=== PATIENT | male | born 1985 | race Caucasian/White ===

== ENCOUNTER 2018-10-04 11:01 | Inpatient (IN) | payer OTHER ==
[2018-10-04 12:43] VITALS: BMI 19.2
--- NOTE | 2018-10-04 15:06 | HP ---
CIWA Score Nausea/Vomitin Muscle Tremors: 5 Anxiety: 3 Agitation: 0-Normal Activity Paroxysmal Sweats: 2 Orientation: 0-Oriented Tacttile Disturbances: 1-Very Mild Itch/Numbness Auditory Disturbances: 0-None Visual Disturbances: 0-None Headache: 1-Very Mild CIWA-Ar Total Score: 17 - Admission Criteria OASAS Guidelines: Admission for Medically Managed Detox: Requires at least one of the followin. CIWA greater than 12 2. Seizures within the past 24 hours 3. Delirium tremens within the past 24 hours 4. Hallucinations within the past 24 hours 5. Acute intervention needed for co occurring medical disorder 6. Acute intervention needed for co occurring psychiatric disorder 7. Severe withdrawal that cannot be handled at a lower level of care (continued vomiting, continued diarrhea, abnormal vital signs) requiring intravenous medication and/or fluids 8. Patient presents the following: CIWA greater than 12 Admission Criteria Met: Admission criteria met Admission ROS [facility] Chief Complaint: alcohol withdrawal sx Allergies/Adverse Reactions: Allergies Allergy/AdvReac Type Severity Reaction Status Date / Time No Known Allergies Allergy Verified 10/04/18 12:39 History of Present Illness: Patient is a 33 yo male with hx of alcohol dependence is here seeking inpatient detox d/t withdrawal symptoms c/o of frequent nausea and vomiting today and ongoing tremors. Last detox [facility] four years ago. Reports hx of alcohol withdrawal seizures, with last episode five days ago and remote hx of psychosis while detoxing of alcohol. PMHX: Fatty Liver, Bulging disc. Psych: denies. Denies SI/HI Exam Limitations: No Limitations - Ebola screening Have you traveled outside of the country in the last 21 days: No (N) Have you had contact with anyone from an Ebola affected area: No Do you have a fever: No - Review of Systems Constitutional: Chills, Night Sweats, Changes in sleep, Unintentional Wgt. Loss (40+ lbs), Other (shakes, anorexia) EENT: reports: No Symptoms Reported Respiratory: reports: No Symptoms reported Cardiac: reports: Lightheadedness GI: reports: Nausea, Poor Appetite, Poor Fluid Intake, Vomiting, Abdominal cramping : reports: No Symptoms Reported Musculoskeletal: reports: Back Pain Integumentary: reports: No Symptoms Reported Neuro: reports: Dizziness Endocrine: reports: No Symptoms Reported Hematology: reports: No Symptoms Reported Psychiatric: reports: Orientated x3, Anxious Other Systems: Reviewed and Negative Patient History - Patient Medical History Hx Anemia: No Hx Asthma: No Hx Chronic Obstructive Pulmonary Disease (COPD): No Hx Cancer: No Hx Cardiac Disorders: No Hx Congestive Heart Failure: No Hx Hypertension: No Hx Hypercholesterolemia: No Hx Pacemaker: No HX Cerebrovascular Accident: No Hx Seizures: Yes (ETOH withdrawal last seizure five days ago ) Hx Dementia: No Hx Diabetes: No Hx Gastrointestinal Disorders: No Hx Liver Disease: Yes (Fatty Liver ) Hx Genitourinary Disorders: No Hx Sexually Transmitted Disorders: No Hx Renal Disease (ESRD): No Hx Thyroid Disease: No Hx Human Immunodeficiency Virus (HIV): No Hx Hepatitis C: No Hx Depression: No Hx Suicide Attempt: No Hx Bipolar Disorder: No Hx Schizophrenia: No - Patient Surgical History Past Surgical History: No - PPD History Previous Implant?: No Documented Results: Negative w/o proof PPD to be Administered?: Yes - Smoking Cessation Smoking history: Current every day smoker Have you smoked in the past 12 months: Yes Aproximately how many cigarettes per day: 10 Hx Chewing Tobacco Use: No Initiated information on smoking cessation: Yes 'Breaking Loose' booklet given: 10/04/18 - Substance & Tx. History Hx Alcohol Use: Yes Hx Substance Use: Yes Substance Use Type: Alcohol Hx Substance Use Treatment: Yes (Last detox [facility] four years ago.) - Substances abused Alcohol Substance route: Oral Frequency: Daily Amount used: 1.5LITER OF VODKA Age of first use: 8 Date of last use: 10/04/18 Family Disease History - Family Disease History Family History: Denies Admission Physical Exam [facility] - Vital Signs Vital Signs: Vital Signs - 24 hr 10/04/18 12:32 Temperature 98.6 F Pulse Rate 91 H Respiratory 17 Rate Blood Pressure 136/89 - Physical General Appearance: Yes: Disheveled, Moderate Distress, Thin, Tremorous, Sweating, Anxious HEENTM: Yes: EOMI, Hearing grossly Normal, Normal ENT Inspection, Normocephalic , Normal Voice, HAZEL, Pharynx Normal, Tm's normal Respiratory: Yes: Chest Non-Tender, Lungs Clear, Normal Breath Sounds Neck: Yes: Within Normal Limits Breast: Yes: Breast Exam Deferred Cardiology: Yes: Regular Rhythm, Regular Rate Abdominal: Yes: Normal Bowel Sounds, Non Tender, Flat, Soft Genitourinary: Yes: Within Normal Limits Back: Yes: Normal Inspection Musculoskeletal: Yes: full range of Motion, Gait Steady, Pelvis Stable Extremities: Yes: Normal Capillary Refill, Normal Inspection, Normal Range of Motion, Non-Tender Neurological: Yes: 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 NML intact, Fully Oriented, Alert, Motor Strength 5/5, Depressed Affect Integumentary: Yes: Normal Color, Warm, Diaphoresis Lymphatic: Yes: Within Normal Limits - Diagnostic (1) Alcohol dependence with uncomplicated withdrawal Current Visit: Yes Status: Acute (2) Bulging disc Current Visit: Yes Status: Chronic (3) Use of cane as ambulatory aid Current Visit: Yes Status: Chronic (4) Tremor due to drug withdrawal Current Visit: Yes Status: Acute (5) Nicotine dependence Current Visit: Yes Status: Acute Qualifiers: Nicotine product type: cigarettes Cleared for Admission S - Detox or Rehab [facility] Level of Care: Medically Managed Detox Regimen/Protocol: Librium Breathalyzer - Breathalyzer Breathalyzer: 0.81 Urine Drug Screen - Test Device Lot number: [id number] Expiration date: 07/18/20 - Control Is test valid?: Yes - Results Drug screen NEGATIVE: Yes Inpatient Rehab Admission - Rehab Decision to Admit Inpatient rehab admission?: No
[2018-10-04] MEDS ORDERED: MAG HYDROX/AL HYDROX/SIMETH 30 ML UNIT-DOSE CUP PO PRN (15:07)
[2018-10-04] MEDS ORDERED: NICOTINE POLACRILEX 2 MG GUM BUC PRN (15:07)
[2018-10-04] MEDS ORDERED: MAGNESIUM CITRATE 300 ML BOTTLE PO PRN (15:07)
[2018-10-04] MEDS ORDERED: MAGNESIUM HYDROX 2400MG/30ML ORAL SUSPENSION 30 ML CUP PO PRN (15:07)
[2018-10-04] MEDS ORDERED: IBUPROFEN 400 MG TABLET (FP) PO PRN (15:07)
[2018-10-04] MEDS ORDERED: MENTHOL/PHENOL 1 EACH UD MM PRN (15:07)
[2018-10-04] MEDS ORDERED: BISMUTH SUBSALICYLATE 262 MG/15 ML BTL PO PRN (15:07)
[2018-10-04] MEDS ORDERED: ACETAMINOPHEN 325 MG TABLET (FP) PO PRN ×2 (15:07)
[2018-10-04] MEDS: chlordiazePOXIDE HCL 25 MG CAPSULE PO SCH ×2 (16:44→22:06)
[2018-10-04 17:38] LABS: EPI CELLS 2.8 /HPF (0-5/HPF); HYALINE CASTS 6 /lpf (0-8); PH,URINE >= 9.0 (5.0-8.0); URINE APPEARANCE CLEAR; URINE BILIRUBIN NEGATIVE (NEGATIVE); URINE COLOR DK YELLOW; URINE GLUCOSE (UA) NEGATIVE (NEGATIVE); URINE KETONE TRACE (NEGATIVE); URINE LEUK ESTERASE NEGATIVE (NEGATIVE); URINE NITRITE NEGATIVE (NEGATIVE); URINE PROTEIN 2+ (NEGATIVE); URINE RBC 5 /hpf (0-4); URINE WBC 3 /hpf (0-5)
[2018-10-04] MEDS: chlordiazePOXIDE HCL 25 MG CAPSULE PO PRN (18:30)
[2018-10-04] MEDS: MELATONIN 5 MG TABLETS PO PRN (22:06)
[2018-10-04] MEDS: THIAMINE HCL 100 MG TABLET (FP) PO SCH (22:06)
[2018-10-05] MEDS: chlordiazePOXIDE HCL 25 MG CAPSULE PO SCH ×4 (05:46→22:18)
[2018-10-05] MEDS: PRENATAL VITAMINS W/ FOLIC ACID TABLET (FP) PO SCH (10:09)
[2018-10-05] MEDS: METHOCARBAMOL 500 MG TABLET PO PRN ×2 (10:09→22:19)
[2018-10-05] MEDS: NICOTINE 14 MG/24 HOURS TOPICAL PATCH TD SCH (10:09)
[2018-10-05 10:28] LABS: HEMATOCRIT 40.7 % (35.4-49); MCH 35.9 pg (25.7-33.7); MCHC 34.3 g/dl (32.0-35.9); MEAN CELL VOLUME 104.9 fl (80-96); MEAN PLT VOLUME 8.6 fl (7.5-11.1); RBC 3.88 M/mm3 (4.00-5.60); WHITE BLOOD COUNT 3.3 K/mm3 (4.0-10.0)
[2018-10-05 10:30] LABS: ALBUMIN 4.1 g/dl (3.4-5.0); BILIRUBIN,TOTAL 1.4 mg/dL (0.2-1); BLOOD UREA NITROGEN 6.5 mg/dL (7-18); CALCIUM 9.2 mg/dL (8.5-10.1); CREATININE 0.5 mg/dL (0.55-1.3); POTASSIUM 3.4 mmol/L (3.5-5.1)
[2018-10-05 10:40] LABS: PLATELET COUNT 66 K/MM3 (134-434)
--- NOTE | 2018-10-05 11:14 | PN ---
[facility] CIWA - CIWA Score Nausea/Vomitin-No Nausea/No Vomiting Muscle Tremors: 3 Anxiety: 3 Agitation: 3 Paroxysmal Sweats: 3 Orientation: 0-Oriented Tacttile Disturbances: 0-None Auditory Disturbances: 0-None Visual Disturbances: 0-None Headache: 0-None Present CIWA-Ar Total Score: 12 S Progress Note (SOAP) Subjective: sweats shakes body aches nausea interrupted sleep Objective: 10/05/18 11:13 Vital Signs Temperature 97.7 F 10/05/18 09:47 Pulse Rate 67 10/05/18 09:47 Respiratory Rate 16 10/05/18 09:47 Blood Pressure 128/85 10/05/18 09:47 O2 Sat by Pulse Oximetry (%) Laboratory Tests 10/04/18 10/05/18 10/05/18 15:51 07:00 07:00 WBC 3.3 L RBC 3.88 L Hgb 14.0 Hct 40.7 MCV 104.9 H MCH 35.9 H MCHC 34.3 RDW 14.0 Sodium 137 Potassium 3.4 L Chloride 100 Carbon Dioxide 29 Anion Gap 8 BUN 6.5 L Creatinine 0.5 L Est GFR (CKD-EPI)AfAm 162.72 Est GFR (CKD-EPI)NonAf 140.40 Random Glucose 86 Calcium 9.2 Total Bilirubin 1.4 H AST 285 H ALT 140 H Alkaline Phosphatase 116 Total Protein 7.0 Albumin 4.1 Urine Color Dk yellow Urine Appearance Clear Urine pH >= 9.0 H Ur Specific [place] 1.021 Urine Protein 2+ H Urine Glucose (UA) Negative Urine Ketones Trace H Urine Blood Negative Urine Nitrite Negative Urine Bilirubin Negative Urine Urobilinogen 1.0 Ur Leukocyte Esterase Negative Urine WBC (Auto) 3 Urine RBC (Auto) 5 Urine Casts (Auto) 6 U Epithel Cells (Auto) 2.8 Urine Bacteria (Auto) 8.0 labs noted aaox3 ambulating no acute distress potassium 3.4; kdur 20meq x 4 days ordered labs repeated. Assessment: 10/05/18 11:14 withdrawal sx Plan: continue detox increase fluids f/u on repeated labs
[2018-10-05] MEDS: POTASSIUM CHLORIDE TABS 20 MEQ TABLET.ER (FP) PO SCH (12:26)
[2018-10-05] MEDS: chlordiazePOXIDE HCL 25 MG CAPSULE PO PRN (18:48)
[2018-10-05] MEDS: THIAMINE HCL 100 MG TABLET (FP) PO SCH (22:17)
[2018-10-05] MEDS: MELATONIN 5 MG TABLETS PO PRN (22:18)
[2018-10-06] MEDS: chlordiazePOXIDE HCL 25 MG CAPSULE PO SCH ×4 (05:22→22:05)
[2018-10-06] MEDS: POTASSIUM CHLORIDE TABS 20 MEQ TABLET.ER (FP) PO SCH (10:11)
[2018-10-06] MEDS: PRENATAL VITAMINS W/ FOLIC ACID TABLET (FP) PO SCH (10:11)
[2018-10-06] MEDS: NICOTINE 14 MG/24 HOURS TOPICAL PATCH TD SCH (10:11)
[2018-10-06 12:19] LABS: BASO % 0.8 % (0-2.0); EOS % 2.6 % (0-4.5); HEMATOCRIT 41.1 % (35.4-49); HEMOGLOBIN 13.9 GM/dL (11.7-16.9); LYMPH % 25.8 % (8-40); MCH 35.9 pg (25.7-33.7); MCHC 33.9 g/dl (32.0-35.9); MEAN PLT VOLUME 9.7 fl (7.5-11.1); MONO % 14.5 % (3.8-10.2); NEUT % 56.3 % (42.8-82.8); PLATELET COUNT 68 K/MM3 (134-434); RBC 3.88 M/mm3 (4.00-5.60); RDW 14.1 % (11.9-15.9); WHITE BLOOD COUNT 3.8 K/mm3 (4.0-10.0)
[2018-10-06 12:23] LABS: ALBUMIN 3.9 g/dl (3.4-5.0); BILIRUBIN,TOTAL 0.9 mg/dL (0.2-1); BLOOD UREA NITROGEN 7.8 mg/dL (7-18); CALCIUM 8.8 mg/dL (8.5-10.1); CREATININE 0.6 mg/dL (0.55-1.3); POTASSIUM 3.9 mmol/L (3.5-5.1); TOT PROT 6.9 g/dl (6.4-8.2)
--- NOTE | 2018-10-06 12:51 | PN ---
S CIWA - CIWA Score Nausea/Vomitin-Mild Nausea/No Vomiting Muscle Tremors: 2 Anxiety: 1-Mildly Anxious Agitation: 1-Slight > Activity Paroxysmal Sweats: 3 Orientation: 0-Oriented Tacttile Disturbances: 2-Mild Itch/Numbness/Burn Auditory Disturbances: 0-None Visual Disturbances: 0-None Headache: 0-None Present CIWA-Ar Total Score: 10 BHS Progress Note (SOAP) Subjective: interruptedsleep, sweats, shakes Objective: 10/06/18 12:48 Vital Signs Temperature 97.3 F L 10/06/18 09:22 Pulse Rate 92 H 10/06/18 09:22 Respiratory Rate 17 10/06/18 09:22 Blood Pressure 112/66 10/06/18 09:22 O2 Sat by Pulse Oximetry (%) Laboratory Tests 10/04/18 10/05/18 10/05/18 15:51 07:00 07:00 WBC 3.3 L RBC 3.88 L Hgb 14.0 Hct 40.7 MCV 104.9 H MCH 35.9 H MCHC 34.3 RDW 14.0 Plt Count 66 L MPV 8.6 Absolute Neuts (auto) Neutrophils % Lymphocytes % Monocytes % Eosinophils % Basophils % Nucleated RBC % Manual Slide Review Platelet Comment Sodium 137 Potassium 3.4 L Chloride 100 Carbon Dioxide 29 Anion Gap 8 BUN 6.5 L Creatinine 0.5 L Est GFR (CKD-EPI)AfAm 162.72 Est GFR (CKD-EPI)NonAf 140.40 Random Glucose 86 Calcium 9.2 Total Bilirubin 1.4 H AST 285 H ALT 140 H Alkaline Phosphatase 116 Total Protein 7.0 Albumin 4.1 Urine Color Dk yellow Urine Appearance Clear Urine pH >= 9.0 H Ur Specific [place] 1.021 Urine Protein 2+ H Urine Glucose (UA) Negative Urine Ketones Trace H Urine Blood Negative Urine Nitrite Negative Urine Bilirubin Negative Urine Urobilinogen 1.0 Ur Leukocyte Esterase Negative Urine WBC (Auto) 3 Urine RBC (Auto) 5 Urine Casts (Auto) 6 U Epithel Cells (Auto) 2.8 Urine Bacteria (Auto) 8.0 RPR Titer 10/05/18 10/06/18 10/06/18 07:00 07:00 07:00 WBC 3.8 L RBC 3.88 L Hgb 13.9 Hct 41.1 MCV 106.0 H MCH 35.9 H MCHC 33.9 RDW 14.1 Plt Count 68 L MPV 9.7 D Absolute Neuts (auto) 2.2 Neutrophils % 56.3 Lymphocytes % 25.8 Monocytes % 14.5 H Eosinophils % 2.6 Basophils % 0.8 Nucleated RBC % 0 Manual Slide Review Platelet Comment Sodium 137 Potassium 3.9 Chloride 103 Carbon Dioxide 29 Anion Gap 5 L BUN 7.8 Creatinine 0.6 Est GFR (CKD-EPI)AfAm 150.97 Est GFR (CKD-EPI)NonAf 130.26 Random Glucose 77 Calcium 8.8 Total Bilirubin 0.9 AST 139 H ALT 113 H Alkaline Phosphatase 136 H Total Protein 6.9 Albumin 3.9 Urine Color Urine Appearance Urine pH Ur Specific [place] Urine Protein Urine Glucose (UA) Urine Ketones Urine Blood Urine Nitrite Urine Bilirubin Urine Urobilinogen Ur Leukocyte Esterase Urine WBC (Auto) Urine RBC (Auto) Urine Casts (Auto) U Epithel Cells (Auto) Urine Bacteria (Auto) RPR Titer Nonreactive pt aox3 in nad ambulating Assessment: 10/06/18 12:49 withdrawal sx's repeat transaminases improved Plan: cont. detox increase fluids
[2018-10-06 13:20] LABS: ANISOCYTOSIS 1+; MACROCYTOSIS 1+; PLATELET ESTIMATE DECREASED
[2018-10-06] MEDS: MELATONIN 5 MG TABLETS PO PRN (22:05)
[2018-10-06] MEDS: THIAMINE HCL 100 MG TABLET (FP) PO SCH (22:05)
[2018-10-07] MEDS ORDERED: chlordiazePOXIDE HCL 10 MG CAPSULE PO PRN
[2018-10-07] MEDS: chlordiazePOXIDE HCL 10 MG CAPSULE PO SCH ×4 (06:25→22:18)
[2018-10-07] MEDS: POTASSIUM CHLORIDE TABS 20 MEQ TABLET.ER (FP) PO SCH (10:10)
[2018-10-07] MEDS: PRENATAL VITAMINS W/ FOLIC ACID TABLET (FP) PO SCH (10:10)
[2018-10-07] MEDS: NICOTINE 14 MG/24 HOURS TOPICAL PATCH TD SCH (10:10)
--- NOTE | 2018-10-07 11:53 | PN ---
S CIWA - CIWA Score Nausea/Vomitin-No Nausea/No Vomiting Muscle Tremors: None Anxiety: 3 Agitation: 2 Paroxysmal Sweats: 3 Orientation: 0-Oriented Tacttile Disturbances: 0-None Auditory Disturbances: 0-None Visual Disturbances: 0-None Headache: 2-Mild CIWA-Ar Total Score: 10 S Progress Note (SOAP) Subjective: c/o sweats, shakes, headache, and anxiety. Objective: 10/07/18 11:52 Vital Signs 10/07/18 10/07/18 08:19 09:00 Temperature 97.5 F L 98.2 F Pulse Rate 61 88 Respiratory 18 18 Rate Blood Pressure 114/71 108/78 Lab Results WBC 3.8 K/mm3 (4.0-10.0) L 10/06/18 07:00 RBC 3.88 M/mm3 (4.00-5.60) L 10/06/18 07:00 Hgb 13.9 GM/dL (11.7-16.9) 10/06/18 07:00 Hct 41.1 % (35.4-49) 10/06/18 07:00 MCV 106.0 fl (80-96) H 10/06/18 07:00 MCHC 33.9 g/dl (32.0-35.9) 10/06/18 07:00 RDW 14.1 % (11.9-15.9) 10/06/18 07:00 Plt Count 68 K/MM3 (134-434) L 10/06/18 07:00 Sodium 137 mmol/L (136-145) 10/06/18 07:00 Potassium 3.9 mmol/L (3.5-5.1) 10/06/18 07:00 Chloride 103 mmol/L (98-107) 10/06/18 07:00 Carbon Dioxide 29 mmol/L (21-32) 10/06/18 07:00 Anion Gap 5 MMOL/L (8-16) L 10/06/18 07:00 BUN 7.8 mg/dL (7-18) 10/06/18 07:00 Creatinine 0.6 mg/dL (0.55-1.3) 10/06/18 07:00 Random Glucose 77 mg/dL (74-106) 10/06/18 07:00 Calcium 8.8 mg/dL (8.5-10.1) 10/06/18 07:00 Labs noted. Assessment: 10/07/18 11:53 AOX3, in no acute distress. Full ROM, ambulating in the unit. withdrawal symptoms. Plan: continue detox.
[2018-10-07] MEDS: THIAMINE HCL 100 MG TABLET (FP) PO SCH (22:18)
[2018-10-08] MEDS: chlordiazePOXIDE HCL 10 MG CAPSULE PO SCH ×2 (06:39→18:20)
[2018-10-08] MEDS: PRENATAL VITAMINS W/ FOLIC ACID TABLET (FP) PO SCH (10:21)
[2018-10-08] MEDS: NICOTINE 14 MG/24 HOURS TOPICAL PATCH TD SCH (10:21)
[2018-10-08] MEDS: POTASSIUM CHLORIDE TABS 20 MEQ TABLET.ER (FP) PO SCH (10:21)
--- NOTE | 2018-10-08 13:48 | PN ---
S CIWA - CIWA Score Nausea/Vomitin-No Nausea/No Vomiting Muscle Tremors: 1-None Visible, but [place] Anxiety: 0-No Anxiety, at Ease Agitation: 0-Normal Activity Paroxysmal Sweats: 1-Minimal Palms Moist Orientation: 0-Oriented Tacttile Disturbances: 0-None Auditory Disturbances: 0-None Visual Disturbances: 0-None Headache: 1-Very Mild CIWA-Ar Total Score: 3 BHS Progress Note (SOAP) Subjective: Pt reports feeling better. Mild c/o headache, sweating and shakes. Objective: 10/08/18 13:46 Laboratory Tests 10/04/18 10/05/18 10/05/18 15:51 07:00 07:00 WBC 3.3 L RBC 3.88 L Hgb 14.0 Hct 40.7 MCV 104.9 H MCH 35.9 H MCHC 34.3 RDW 14.0 Plt Count 66 L MPV 8.6 Absolute Neuts (auto) Neutrophils % Lymphocytes % Monocytes % Eosinophils % Basophils % Nucleated RBC % Manual Slide Review Hypochromia Platelet Estimate Platelet Comment Polychromasia Poikilocytosis Anisocytosis Microcytosis Macrocytosis Sodium 137 Potassium 3.4 L Chloride 100 Carbon Dioxide 29 Anion Gap 8 BUN 6.5 L Creatinine 0.5 L Est GFR (CKD-EPI)AfAm 162.72 Est GFR (CKD-EPI)NonAf 140.40 Random Glucose 86 Calcium 9.2 Total Bilirubin 1.4 H AST 285 H ALT 140 H Alkaline Phosphatase 116 Total Protein 7.0 Albumin 4.1 Urine Color Dk yellow Urine Appearance Clear Urine pH >= 9.0 H Ur Specific [place] 1.021 Urine Protein 2+ H Urine Glucose (UA) Negative Urine Ketones Trace H Urine Blood Negative Urine Nitrite Negative Urine Bilirubin Negative Urine Urobilinogen 1.0 Ur Leukocyte Esterase Negative Urine WBC (Auto) 3 Urine RBC (Auto) 5 Urine Casts (Auto) 6 U Epithel Cells (Auto) 2.8 Urine Bacteria (Auto) 8.0 RPR Titer TB (QFT) Incubation TB Test (QFT) Nil TB Test (QFT) Mitogen TB Test (QFT) Antigen TB Test (QFT) TB Positive Criteria 10/05/18 10/05/18 10/06/18 07:00 07:00 07:00 WBC 3.8 L RBC 3.88 L Hgb 13.9 Hct 41.1 MCV 106.0 H MCH 35.9 H MCHC 33.9 RDW 14.1 Plt Count 68 L MPV 9.7 D Absolute Neuts (auto) 2.2 Neutrophils % 56.3 Lymphocytes % 25.8 Monocytes % 14.5 H Eosinophils % 2.6 Basophils % 0.8 Nucleated RBC % 0 Manual Slide Review Hypochromia 0 Platelet Estimate Decreased Platelet Comment Present Polychromasia 0 Poikilocytosis 0 Anisocytosis 1+ Microcytosis 0 Macrocytosis 1+ Sodium Potassium Chloride Carbon Dioxide Anion Gap BUN Creatinine Est GFR (CKD-EPI)AfAm Est GFR (CKD-EPI)NonAf Random Glucose Calcium Total Bilirubin AST ALT Alkaline Phosphatase Total Protein Albumin Urine Color Urine Appearance Urine pH Ur Specific [place] Urine Protein Urine Glucose (UA) Urine Ketones Urine Blood Urine Nitrite Urine Bilirubin Urine Urobilinogen Ur Leukocyte Esterase Urine WBC (Auto) Urine RBC (Auto) Urine Casts (Auto) U Epithel Cells (Auto) Urine Bacteria (Auto) RPR Titer Nonreactive TB (QFT) Incubation TB Test (QFT) Nil 0.02 TB Test (QFT) Mitogen 9.82 TB Test (QFT) Antigen 0.03 TB Test (QFT) Negative TB Positive Criteria 10/06/18 07:00 WBC RBC Hgb Hct MCV MCH MCHC RDW Plt Count MPV Absolute Neuts (auto) Neutrophils % Lymphocytes % Monocytes % Eosinophils % Basophils % Nucleated RBC % Manual Slide Review Hypochromia Platelet Estimate Platelet Comment Polychromasia Poikilocytosis Anisocytosis Microcytosis Macrocytosis Sodium 137 Potassium 3.9 Chloride 103 Carbon Dioxide 29 Anion Gap 5 L BUN 7.8 Creatinine 0.6 Est GFR (CKD-EPI)AfAm 150.97 Est GFR (CKD-EPI)NonAf 130.26 Random Glucose 77 Calcium 8.8 Total Bilirubin 0.9 AST 139 H ALT 113 H Alkaline Phosphatase 136 H Total Protein 6.9 Albumin 3.9 Urine Color Urine Appearance Urine pH Ur Specific [place] Urine Protein Urine Glucose (UA) Urine Ketones Urine Blood Urine Nitrite Urine Bilirubin Urine Urobilinogen Ur Leukocyte Esterase Urine WBC (Auto) Urine RBC (Auto) Urine Casts (Auto) U Epithel Cells (Auto) Urine Bacteria (Auto) RPR Titer TB (QFT) Incubation TB Test (QFT) Nil TB Test (QFT) Mitogen TB Test (QFT) Antigen TB Test (QFT) TB Positive Criteria Vital Signs Temperature 97.9 F 10/08/18 09:40 Pulse Rate 74 10/08/18 09:40 Respiratory Rate 16 10/08/18 09:40 Blood Pressure 100/67 10/08/18 09:40 O2 Sat by Pulse Oximetry (%) Pe: alert and oriented x 3 skin mild facial moisture +perrla eoms intact bl ext mild tremors felt Assessment: 10/08/18 13:47 withdrawal sx Plan: continue detox for d/c in am monitor
[2018-10-08] MEDS: THIAMINE HCL 100 MG TABLET (FP) PO SCH (22:13)
[2018-10-08] MEDS: MELATONIN 5 MG TABLETS PO PRN (22:14)
[2018-10-08] MEDS: METHOCARBAMOL 500 MG TABLET PO PRN (22:15)
[2018-10-09] MEDS ORDERED: chlordiazePOXIDE HCL 10 MG CAPSULE PO ONE (05:00)
[2018-10-09 06:45] VITALS: BP 121/74; PULSE 68; TEMP 97.7
--- NOTE | 2018-10-09 10:23 | DS ---
[facility] Detox Discharge Summary Admission Date: 10/04/18 Discharge Date: 10/09/18 - History Present History: Alcohol Dependence - Physical Exam Results Vital Signs: Vital Signs Temperature 97.7 F 10/09/18 06:00 Pulse Rate 68 10/09/18 06:00 Respiratory Rate 18 10/09/18 06:00 Blood Pressure 121/74 10/09/18 06:00 O2 Sat by Pulse Oximetry (%) Pertinent Admission Physical Exam Findings: pt arrived in [facility] Laboratory Tests 10/04/18 10/05/18 10/05/18 15:51 07:00 07:00 WBC 3.3 L RBC 3.88 L Hgb 14.0 Hct 40.7 MCV 104.9 H MCH 35.9 H MCHC 34.3 RDW 14.0 Plt Count 66 L MPV 8.6 Absolute Neuts (auto) Neutrophils % Lymphocytes % Monocytes % Eosinophils % Basophils % Nucleated RBC % Manual Slide Review Hypochromia Platelet Estimate Platelet Comment Polychromasia Poikilocytosis Anisocytosis Microcytosis Macrocytosis Sodium 137 Potassium 3.4 L Chloride 100 Carbon Dioxide 29 Anion Gap 8 BUN 6.5 L Creatinine 0.5 L Est GFR (CKD-EPI)AfAm 162.72 Est GFR (CKD-EPI)NonAf 140.40 Random Glucose 86 Calcium 9.2 Total Bilirubin 1.4 H AST 285 H ALT 140 H Alkaline Phosphatase 116 Total Protein 7.0 Albumin 4.1 Urine Color Dk yellow Urine Appearance Clear Urine pH >= 9.0 H Ur Specific [place] 1.021 Urine Protein 2+ H Urine Glucose (UA) Negative Urine Ketones Trace H Urine Blood Negative Urine Nitrite Negative Urine Bilirubin Negative Urine Urobilinogen 1.0 Ur Leukocyte Esterase Negative Urine WBC (Auto) 3 Urine RBC (Auto) 5 Urine Casts (Auto) 6 U Epithel Cells (Auto) 2.8 Urine Bacteria (Auto) 8.0 RPR Titer TB (QFT) Incubation TB Test (QFT) Nil TB Test (QFT) Mitogen TB Test (QFT) Antigen TB Test (QFT) TB Positive Criteria 10/05/18 10/05/18 10/06/18 07:00 07:00 07:00 WBC 3.8 L RBC 3.88 L Hgb 13.9 Hct 41.1 MCV 106.0 H MCH 35.9 H MCHC 33.9 RDW 14.1 Plt Count 68 L MPV 9.7 D Absolute Neuts (auto) 2.2 Neutrophils % 56.3 Lymphocytes % 25.8 Monocytes % 14.5 H Eosinophils % 2.6 Basophils % 0.8 Nucleated RBC % 0 Manual Slide Review Hypochromia 0 Platelet Estimate Decreased Platelet Comment Present Polychromasia 0 Poikilocytosis 0 Anisocytosis 1+ Microcytosis 0 Macrocytosis 1+ Sodium Potassium Chloride Carbon Dioxide Anion Gap BUN Creatinine Est GFR (CKD-EPI)AfAm Est GFR (CKD-EPI)NonAf Random Glucose Calcium Total Bilirubin AST ALT Alkaline Phosphatase Total Protein Albumin Urine Color Urine Appearance Urine pH Ur Specific [place] Urine Protein Urine Glucose (UA) Urine Ketones Urine Blood Urine Nitrite Urine Bilirubin Urine Urobilinogen Ur Leukocyte Esterase Urine WBC (Auto) Urine RBC (Auto) Urine Casts (Auto) U Epithel Cells (Auto) Urine Bacteria (Auto) RPR Titer Nonreactive TB (QFT) Incubation TB Test (QFT) Nil 0.02 TB Test (QFT) Mitogen 9.82 TB Test (QFT) Antigen 0.03 TB Test (QFT) Negative TB Positive Criteria 10/06/18 07:00 WBC RBC Hgb Hct MCV MCH MCHC RDW Plt Count MPV Absolute Neuts (auto) Neutrophils % Lymphocytes % Monocytes % Eosinophils % Basophils % Nucleated RBC % Manual Slide Review Hypochromia Platelet Estimate Platelet Comment Polychromasia Poikilocytosis Anisocytosis Microcytosis Macrocytosis Sodium 137 Potassium 3.9 Chloride 103 Carbon Dioxide 29 Anion Gap 5 L BUN 7.8 Creatinine 0.6 Est GFR (CKD-EPI)AfAm 150.97 Est GFR (CKD-EPI)NonAf 130.26 Random Glucose 77 Calcium 8.8 Total Bilirubin 0.9 AST 139 H ALT 113 H Alkaline Phosphatase 136 H Total Protein 6.9 Albumin 3.9 Urine Color Urine Appearance Urine pH Ur Specific [place] Urine Protein Urine Glucose (UA) Urine Ketones Urine Blood Urine Nitrite Urine Bilirubin Urine Urobilinogen Ur Leukocyte Esterase Urine WBC (Auto) Urine RBC (Auto) Urine Casts (Auto) U Epithel Cells (Auto) Urine Bacteria (Auto) RPR Titer TB (QFT) Incubation TB Test (QFT) Nil TB Test (QFT) Mitogen TB Test (QFT) Antigen TB Test (QFT) TB Positive Criteria today pt is aaox3 ambulating no acute distress no s/s of withdrawal sx - Treatment Hospital Course: Detox Protocol Followed, Detoxed Safely, Responded well, Discharged Condition Good, Rehab Referral Accepted - Medication Discharge Medications: Ambulatory Orders NK [No Known Home Medication] 10/04/18 - Diagnosis (1) Alcohol dependence with uncomplicated withdrawal Current Visit: Yes Status: Chronic (2) Nicotine dependence Current Visit: Yes Status: Chronic Qualifiers: Nicotine product type: cigarettes Substance use status: uncomplicated Qualified Code(s): F17.210 - Nicotine dependence, cigarettes, uncomplicated (3) Tremor due to drug withdrawal Current Visit: Yes Status: Acute (4) Bulging disc Current Visit: Yes Status: Chronic (5) Use of cane as ambulatory aid Current Visit: Yes Status: Chronic - AMA Did Patient Leave Against Medical Advice: No (pt declined rehab; referral provided)
== END 2018-10-09 09:15 | disposition home or self-care (01) | DRG 775 ==
LOC: YASAS 11:01 → Y6N 15:21
PROVIDERS: ADMIT Surgery; ATTEND Surgery
PROC: HZ2ZZZZ Detoxification Services for Substance Abuse Treatment (ICD-10-PCS; principal; 2018-10-04)
DX: F10.230 Alcohol dependence with withdrawal, uncomplicated (principal); F17.210 Nicotine dependence, cigarettes, uncomplicated; G25.1 Drug-induced tremor; K76.0 Fatty (change of) liver, not elsewhere classified; R26.2 Difficulty in walking, not elsewhere classified; Z99.89 Dependence on other enabling machines and devices; Z86.69 Personal history of other diseases of the nervous system and sense organs
CPT/HCPCS: 36415; 80053; 81003; 85025; 85027; 86480; 86593

== ENCOUNTER 2022-04-19 11:30 | Inpatient (IN) | payer OTHER ==
[2022-04-19 12:17] VITALS: BMI 19.8
[2022-04-19] MEDS ORDERED: IBUPROFEN 400 MG TABLET (FP) PO PRN (12:43)
[2022-04-19] MEDS ORDERED: NALOXONE HCL (KLOXXADO) 8 MG SPRAY NS PRN (12:43)
[2022-04-19] MEDS ORDERED: NICOTINE POLACRILEX 2 MG GUM BUC PRN (12:43)
[2022-04-19] MEDS ORDERED: ONDANSETRON *ODT* 4 MG TABLET SL PRN (12:43)
[2022-04-19] MEDS ORDERED: MAG HYDROX/AL HYDROX/SIMETH 30 ML UNIT-DOSE CUP PO PRN (12:43)
[2022-04-19] MEDS ORDERED: BENZOCAINE/MENTHOL (CHLORASEPTIC ) LOZENGE MM PRN (12:43)
[2022-04-19] MEDS ORDERED: DICYCLOMINE HCL 10 MG CAPSULE PO PRN (12:43)
[2022-04-19] MEDS ORDERED: NICOTINE 10 MG CARTRIDGE (INHALER) IH PRN (12:43)
[2022-04-19] MEDS ORDERED: MAGNESIUM HYDROX 2400MG/30ML ORAL SUSPENSION 30 ML CUP PO PRN (12:43)
[2022-04-19] MEDS ORDERED: POLYETHYLENE GLYCOL (HEALTHYLAX) 3350 17 GM PACKET PO PRN (12:43)
[2022-04-19] MEDS ORDERED: LOPERAMIDE HCL 2 MG CAPSULE PO PRN (12:43)
[2022-04-19] MEDS ORDERED: BISMUTH SUBSALICYLATE 262 MG/15 ML BTL PO PRN (12:43)
[2022-04-19] MEDS ORDERED: ACETAMINOPHEN 325 MG TABLET (FP) PO PRN ×2 (12:43)
[2022-04-19] MEDS ORDERED: IBUPROFEN 600 MG TABLET (FP) PO PRN (12:43)
[2022-04-19] MEDS ORDERED: diazePAM 5 MG TABLET ONE (13:18)
[2022-04-19] MEDS ORDERED: PRENATAL VITAMINS W/ FOLIC ACID TABLET (FP) PO ONE (13:19)
[2022-04-19] MEDS: PRENATAL VITAMINS W/ FOLIC ACID TABLET (FP) PO SCH (13:25)
[2022-04-19] MEDS ORDERED: diazePAM 5 MG TABLET PO ONE (13:35)
[2022-04-19] MEDS: diazePAM 5 MG TABLET PO SCH ×2 (17:42→22:04)
[2022-04-19 18:51] LABS: HEMATOCRIT 41.2 % (35.4-49); HEMOGLOBIN 13.4 GM/dL (11.7-16.9); MCH 32.8 pg (25.7-33.7); MCHC 32.5 g/dl (32.0-35.9); MEAN CELL VOLUME 101.1 fl (80-96); MEAN PLT VOLUME 9.4 fl (7.5-11.1); PLATELET COUNT 106 10^3/uL (134-434); RBC 4.08 M/mm3 (4.00-5.60); RDW 15.4 % (11.9-15.9); WHITE BLOOD COUNT 4.6 K/mm3 (4.0-10.0)
[2022-04-19 18:52] LABS: BLOOD UREA NITROGEN 9.6 mg/dL (7-18); CALCIUM 8.9 mg/dL (8.5-10.1)
[2022-04-19 18:56] LABS: CREATININE 0.6 mg/dL (0.55-1.3)
[2022-04-19 18:57] LABS: BILIRUBIN,TOTAL 0.4 mg/dL (0.2-1); TOT PROT 6.8 g/dl (6.4-8.2)
[2022-04-19] MEDS: MELATONIN 5 MG TABLETS PO SCH (22:03)
[2022-04-19] MEDS: METHOCARBAMOL 500 MG TABLET PO PRN (22:03)
[2022-04-19] MEDS: THIAMINE HCL 100 MG TABLET (FP) PO SCH (22:03)
[2022-04-20] MEDS: diazePAM 5 MG TABLET PO SCH ×4 (06:18→22:20)
[2022-04-20] MEDS: PRENATAL VITAMINS W/ FOLIC ACID TABLET (FP) PO SCH (10:12)
[2022-04-20] MEDS: LACTULOSE 20 GM/30 ML UDC (FOR ORAL USE ONLY) PO SCH ×2 (13:48→22:20)
[2022-04-20] MEDS: THIAMINE HCL 100 MG TABLET (FP) PO SCH (22:19)
[2022-04-20] MEDS: MELATONIN 5 MG TABLETS PO SCH (22:20)
[2022-04-21] MEDS: diazePAM 5 MG TABLET PO SCH ×3 (06:16→22:17)
[2022-04-21] MEDS: LACTULOSE 20 GM/30 ML UDC (FOR ORAL USE ONLY) PO SCH ×3 (06:17→22:16)
[2022-04-21] MEDS: PRENATAL VITAMINS W/ FOLIC ACID TABLET (FP) PO SCH (10:19)
[2022-04-21] MEDS: METHOCARBAMOL 500 MG TABLET PO PRN (19:09)
[2022-04-21] MEDS: diazePAM 5 MG TABLET PO PRN (19:09)
[2022-04-21] MEDS: MELATONIN 5 MG TABLETS PO SCH (22:17)
[2022-04-21] MEDS: THIAMINE HCL 100 MG TABLET (FP) PO SCH (22:17)
[2022-04-22] MEDS: LACTULOSE 20 GM/30 ML UDC (FOR ORAL USE ONLY) PO SCH (05:19)
[2022-04-22] MEDS: diazePAM 5 MG TABLET PO SCH ×2 (05:20→17:17)
[2022-04-22] MEDS: PRENATAL VITAMINS W/ FOLIC ACID TABLET (FP) PO SCH (10:04)
[2022-04-22] MEDS: diazePAM 5 MG TABLET PO PRN ×2 (10:05→22:38)
[2022-04-22] MEDS: CLOTRIMAZOLE 1% CREAM TP SCH (22:34)
[2022-04-22] MEDS: THIAMINE HCL 100 MG TABLET (FP) PO SCH (22:36)
[2022-04-22] MEDS: MELATONIN 5 MG TABLETS PO SCH (22:36)
[2022-04-22] MEDS: METHOCARBAMOL 500 MG TABLET PO PRN (22:37)
[2022-04-23] MEDS ORDERED: diazePAM 5 MG TABLET PO ONE (06:00)
[2022-04-23 06:01] VITALS: BP 111/76; PULSE 82; RESP 16; TEMP 97.5
[2022-04-23] MEDS: PRENATAL VITAMINS W/ FOLIC ACID TABLET (FP) PO SCH (09:01)
[2022-04-23] MEDS: CLOTRIMAZOLE 1% CREAM TP SCH (09:01)
== END 2022-04-23 09:05 | disposition home or self-care (01) | DRG 775 ==
LOC: YASAS 11:30 → Y3N 12:57
PROVIDERS: ADMIT Allergy & Immunology; ATTEND Family Medicine
PROC: HZ2ZZZZ Detoxification Services for Substance Abuse Treatment (ICD-10-PCS; principal; 2022-04-19)
DX: F10.230 Alcohol dependence with withdrawal, uncomplicated (principal); F17.210 Nicotine dependence, cigarettes, uncomplicated; F19.24 Other psychoactive substance dependence with psychoactive substance-induced mood disorder; E72.20 Disorder of urea cycle metabolism, unspecified; K74.60 Unspecified cirrhosis of liver; B35.6 Tinea cruris; Z86.69 Personal history of other diseases of the nervous system and sense organs
CPT/HCPCS: 36415; 80053; 82140; 85027; 86780; 87811; C9803-CS; U0003; U0005

== ENCOUNTER 2023-02-17 11:03 | Inpatient (IN) | payer OTHER ==
[2023-02-17 11:47] VITALS: BMI 19.3
[2023-02-17] MEDS ORDERED: chlordiazePOXIDE HCL 25 MG CAPSULE PO ONE (11:53)
[2023-02-17] MEDS ORDERED: BENZOCAINE/MENTHOL (CHLORASEPTIC ) LOZENGE MM PRN (12:00)
[2023-02-17] MEDS ORDERED: MAGNESIUM HYDROX 2400MG/30ML ORAL SUSPENSION 30 ML CUP PO PRN (12:00)
[2023-02-17] MEDS ORDERED: BISMUTH SUBSALICYLATE 262 MG/15 ML BTL PO PRN (12:00)
[2023-02-17] MEDS ORDERED: IBUPROFEN 400 MG TABLET (FP) PO PRN (12:00)
[2023-02-17] MEDS ORDERED: P-EPHED 60MG/TRIPROLIDI 2.5MG TABLET PO PRN (12:00)
[2023-02-17] MEDS ORDERED: MAG HYDROX/AL HYDROX/SIMETH 30 ML UNIT-DOSE CUP PO PRN (12:00)
[2023-02-17] MEDS ORDERED: DICYCLOMINE HCL 10 MG CAPSULE PO PRN (12:00)
[2023-02-17] MEDS ORDERED: POLYETHYLENE GLYCOL (HEALTHYLAX) 3350 17 GM PACKET PO PRN (12:00)
[2023-02-17] MEDS ORDERED: NICOTINE POLACRILEX 2 MG GUM BUC PRN (12:00)
[2023-02-17] MEDS ORDERED: LOPERAMIDE HCL 2 MG CAPSULE PO PRN (12:00)
[2023-02-17] MEDS ORDERED: ACETAMINOPHEN 325 MG TABLET (FP) PO PRN (12:00)
[2023-02-17] MEDS ORDERED: guaiFENesin 600 MG TABLET.ER (FP) PO PRN (12:00)
[2023-02-17] MEDS ORDERED: METHOCARBAMOL 500 MG TABLET PO PRN (12:00)
[2023-02-17] MEDS ORDERED: ONDANSETRON *ODT* 4 MG TABLET SL PRN (12:00)
[2023-02-17] MEDS ORDERED: BENZONATATE 200 MG CAPSULE PO PRN (12:00)
[2023-02-17] MEDS ORDERED: propRANOLol HCL 10 MG TABLET PO ONE (12:05)
[2023-02-17] MEDS ORDERED: FLUCONAZOLE 50 MG TABLET PO ONE (12:14)
[2023-02-17] MEDS: levETIRAcetam 500 MG TABLET (FP) PO SCH ×2 (12:56→22:16)
[2023-02-17] MEDS ORDERED: levETIRAcetam 500 MG TABLET (FP) PO ONE (12:56)
[2023-02-17] MEDS ORDERED: chlordiazePOXIDE HCL 25 MG CAPSULE ONE (12:56)
[2023-02-17] MEDS ORDERED: LIDOCAINE HCL 1%, 10 MG/ML (20ML VIAL) NR ONE (15:45)
[2023-02-17] MEDS: chlordiazePOXIDE HCL 25 MG CAPSULE PO SCH ×2 (17:17→22:17)
[2023-02-17] MEDS: DOXYCYCLINE HYCLATE 100 MG TABLET PO SCH (17:20)
[2023-02-17] MEDS: THIAMINE HCL 100 MG TABLET (FP) PO SCH (22:16)
[2023-02-17] MEDS: MELATONIN 5 MG TABLETS PO SCH (22:17)
[2023-02-18] MEDS: chlordiazePOXIDE HCL 25 MG CAPSULE PO PRN ×2 (00:44→14:46)
[2023-02-18] MEDS: chlordiazePOXIDE HCL 25 MG CAPSULE PO SCH ×4 (05:58→22:17)
[2023-02-18] MEDS: levETIRAcetam 500 MG TABLET (FP) PO SCH ×2 (10:06→22:21)
[2023-02-18] MEDS: DOXYCYCLINE HYCLATE 100 MG TABLET PO SCH ×2 (10:06→17:52)
[2023-02-18] MEDS: PRENATAL VITAMINS W/ FOLIC ACID TABLET (FP) PO SCH (10:06)
[2023-02-18 10:38] LABS: CHLORIDE 99 mmol/L (98-107); POTASSIUM 3.4 mmol/L (3.5-5.1); SODIUM 137 mmol/L (136-145)
[2023-02-18 10:55] LABS: GLUCOSE,RANDOM 108 mg/dL (74-106)
[2023-02-18 10:56] LABS: ANION GAP 8 mmol/L (4-13); CALCIUM 8.8 mg/dL (8.5-10.1); CO2 31 mmol/L (21-32)
[2023-02-18 10:57] LABS: ALBUMIN 3.3 g/dl (3.4-5.0); BLOOD UREA NITROGEN 8.3 mg/dL (7-18)
[2023-02-18 10:58] LABS: SGPT/ALT 51 U/L (13-61)
[2023-02-18 10:59] LABS: BILIRUBIN,TOTAL 0.6 mg/dL (0.2-1); SGOT/AST 61 U/L (15-37)
[2023-02-18 11:00] LABS: CREATININE 0.6 mg/dL (0.55-1.3); TOT PROT 6.1 g/dl (6.4-8.2)
[2023-02-18 11:01] LABS: ALK PHOS 124 U/L (45-117)
[2023-02-18 11:34] LABS: HIV INTERPRETATION NEGATIVE (NEGATIVE)
[2023-02-18 12:18] LABS: HEMATOCRIT 37.6 % (35.4-49); HEMOGLOBIN 12.6 GM/dL (11.7-16.9); MCH 34.1 pg (25.7-33.7); MCHC 33.6 g/dl (32.0-35.9); MEAN CELL VOLUME 101.5 fl (80-96); MEAN PLT VOLUME 8.7 fl (7.5-11.1); PLATELET COUNT 128 10^3/uL (134-434); RBC 3.71 M/mm3 (4.00-5.60); RDW 17.3 % (11.9-15.9); WHITE BLOOD COUNT 5.9 K/mm3 (4.0-10.0)
[2023-02-18] MEDS ORDERED: POTASSIUM CHLORIDE ORAL LIQUID 20 MEQ/15 ML PO ONE (14:00)
[2023-02-18] MEDS ORDERED: POTASSIUM CHLORIDE ORAL LIQUID 20 MEQ/15 ML PO SCH (22:00)
[2023-02-18] MEDS: THIAMINE HCL 100 MG TABLET (FP) PO SCH (22:17)
[2023-02-18] MEDS: CLOTRIMAZOLE 1% CREAM TP SCH (22:17)
[2023-02-18] MEDS: MELATONIN 5 MG TABLETS PO SCH (22:17)
[2023-02-19] MEDS: chlordiazePOXIDE HCL 25 MG CAPSULE PO SCH ×4 (05:43→22:18)
[2023-02-19] MEDS: levETIRAcetam 500 MG TABLET (FP) PO SCH ×2 (10:05→22:15)
[2023-02-19] MEDS: PRENATAL VITAMINS W/ FOLIC ACID TABLET (FP) PO SCH (10:05)
[2023-02-19] MEDS: CLOTRIMAZOLE 1% CREAM TP SCH ×2 (10:06→22:16)
[2023-02-19] MEDS: DOXYCYCLINE HYCLATE 100 MG TABLET PO SCH ×2 (10:06→17:52)
[2023-02-19 19:49] LABS: POTASSIUM 4.5 mmol/L (3.5-5.1)
[2023-02-19 20:04] LABS: BLOOD UREA NITROGEN 10.1 mg/dL (7-18); CALCIUM 9.5 mg/dL (8.5-10.1)
[2023-02-19 20:07] LABS: CREATININE 0.6 mg/dL (0.55-1.3)
[2023-02-19] MEDS: MELATONIN 5 MG TABLETS PO SCH (22:16)
[2023-02-19] MEDS: THIAMINE HCL 100 MG TABLET (FP) PO SCH (22:16)
[2023-02-20] MEDS ORDERED: chlordiazePOXIDE HCL 10 MG CAPSULE PO PRN
[2023-02-20] MEDS: chlordiazePOXIDE HCL 10 MG CAPSULE PO SCH ×4 (05:42→22:41)
[2023-02-20] MEDS: CLOTRIMAZOLE 1% CREAM TP SCH ×2 (10:20→22:42)
[2023-02-20] MEDS: levETIRAcetam 500 MG TABLET (FP) PO SCH ×2 (10:20→22:44)
[2023-02-20] MEDS: PRENATAL VITAMINS W/ FOLIC ACID TABLET (FP) PO SCH (10:20)
[2023-02-20] MEDS: DOXYCYCLINE HYCLATE 100 MG TABLET PO SCH ×2 (10:20→17:47)
[2023-02-20] MEDS: THIAMINE HCL 100 MG TABLET (FP) PO SCH (22:41)
[2023-02-20] MEDS: MELATONIN 5 MG TABLETS PO SCH (22:42)
[2023-02-21] MEDS: chlordiazePOXIDE HCL 10 MG CAPSULE PO SCH ×2 (05:16→17:10)
[2023-02-21] MEDS: CLOTRIMAZOLE 1% CREAM TP SCH ×2 (10:05→22:07)
[2023-02-21] MEDS: PRENATAL VITAMINS W/ FOLIC ACID TABLET (FP) PO SCH (10:05)
[2023-02-21] MEDS: levETIRAcetam 500 MG TABLET (FP) PO SCH ×2 (10:06→22:07)
[2023-02-21] MEDS: DOXYCYCLINE HYCLATE 100 MG TABLET PO SCH ×2 (10:06→17:09)
[2023-02-21] MEDS: THIAMINE HCL 100 MG TABLET (FP) PO SCH (22:07)
[2023-02-21] MEDS: MELATONIN 5 MG TABLETS PO SCH (22:07)
[2023-02-22] MEDS ORDERED: chlordiazePOXIDE HCL 10 MG CAPSULE PO ONE (05:00)
[2023-02-22 09:50] VITALS: BP 131/84; PULSE 90; RESP 16; TEMP 97.7
[2023-02-22] MEDS: PRENATAL VITAMINS W/ FOLIC ACID TABLET (FP) PO SCH (10:12)
[2023-02-22] MEDS: DOXYCYCLINE HYCLATE 100 MG TABLET PO SCH (10:12)
[2023-02-22] MEDS: CLOTRIMAZOLE 1% CREAM TP SCH (10:13)
== END 2023-02-22 10:35 | disposition home or self-care (01) | DRG 775 ==
LOC: YASAS 11:03 → Y3N 12:58
PROVIDERS: ADMIT Allergy & Immunology; ATTEND Surgery
PROC: HZ2ZZZZ Detoxification Services for Substance Abuse Treatment (ICD-10-PCS; principal; 2023-02-18)
DX: F10.230 Alcohol dependence with withdrawal, uncomplicated (principal); F17.210 Nicotine dependence, cigarettes, uncomplicated; E87.6 Hypokalemia; M54.50 Low back pain, unspecified; G89.29 Other chronic pain; R26.89 Other abnormalities of gait and mobility; Z99.89 Dependence on other enabling machines and devices
CPT/HCPCS: 36415; 80048; 80053; 80307; 85027; 86780; 87389; 87491; 87591; 87635; 87811; 93005; 93010